=== PATIENT | female | born 1975 | race Caucasian/White ===

== ENCOUNTER 2016-12-28 10:11 | Emergency (ER) | payer OTHER ==
[2016-12-28 10:18] VITALS: BMI 52.4
[2016-12-28 10:22] VITALS: TEMP 98.6; O2SAT 97
[2016-12-28] MEDS ORDERED: Lidocaine 5% Patch TD STA (11:38)
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
--- NOTE | 2016-12-28 12:47 | RAD ---
PROCEDURE: Cervical Spine Radiographs. HISTORY: Pain. COMPARISON: None. FINDINGS: BONES: The vertebral bodies are maintained in height. The transverse processes and posterior elements are intact. There is mild reversal of the normal lordotic curvature of the cervical spine indicating possible muscular spasm. The atlantoaxial articulation and odontoid process are intact. DISC SPACES: Disc spaces are preserved in height. Mild spondylotic change with osteophyte about the anterior aspect of the C3-4 disc space and see 5-6 disc space. Disc spaces are preserved SOFT TISSUES: Normal. No prevertebral soft tissue swelling. OTHER FINDINGS: None. IMPRESSION: No fracture/ dislocation. Mild spondylotic change C3-4 and C5-6. Possible muscular spasm.
[2016-12-28 13:09] VITALS: BP 135/87; PULSE 72; RESP 18
== END 2016-12-28 13:10 | disposition home or self-care (01) ==
LOC: ED 10:11
DX: S46.911A Strain of unspecified muscle, fascia and tendon at shoulder and upper arm level, right arm, initial encounter (principal); V49.9XXA Car occupant (driver) (passenger) injured in unspecified traffic accident, initial encounter; M54.2 Cervicalgia
CPT/HCPCS: 72050; 96372; 99285; J1885